=== PATIENT | female | born 1995 | race Caucasian/White ===

== ENCOUNTER 2019-10-08 07:36 | Emergency (ER) | payer OTHER, BC, SELFPAY ==
[2019-10-08 07:45] VITALS: BP 118/71; PULSE 74; RESP 18; TEMP 36.6; O2SAT 100
[2019-10-08] MEDS: SODIUM CHLORIDE 0.9% IV 1,000 ML 999 ML IV CONT (08:07)
[2019-10-08 08:15] LABS: Basophils Percent Auto 0.3 % (0.2-1.2); Eosinophils Absolute Auto 0.1 K/mm3 (0-0.3); Eosinophils Percent Auto 1.8 % (0-4.4); Immature Granulocyte Absolute 0.01 K/mm3 (0.00-0.031); Immature Granulocyte Percent A 0.1 % (0-0.5); Lymphocytes Absolute Auto 1.93 K/mm3 (0.9-3.2); Lymphocytes Percent Auto 27.1 % (18.3-44.2); Mean Corpuscular HGB Conc 32.6 g/dl (32-36); Mean Corpuscular Hemoglobin 29.4 pg (26-34); Mean Corpuscular Volume 90.1 fl (80-100); Mean Platelet Volume 9.5 fl (7.4-10.4); Monocytes Absolute Auto 0.7 K/mm3 (0.1-0.6); Neutrophils Absolute Auto 4.3 K/mm3 (1.3-6.7); Neutrophils Percent Auto 60.7 % (45.5-73.1); Platelet Count Result 233 k/mm3 (150-375); Red Blood Count 4.77 M/mm3 (4.2-5.4); Red Cell Distribution Width 12.6 % (11.5-14.5); White Blood Count 7.1 K/mm3 (4.5-10.0)
[2019-10-08 08:17] LABS: Add Urine Microscopic? NO; Appearance Urine Clear (Clear); Bilirubin Urine Negative (Negative); Blood Urine Negative (Negative); Color Urine Yellow (Yellow); Glucose Urine UA Negative (Negative); Ketones Urine Negative (Negative); Leukocyte Esterase Ur Negative LEU/UL (Negative); Nitrate Urine Negative (Negative); Protein Urine Negative (Negative); Specific Grav Ur 1.028 (1.001-1.035); Urobilinogen Urine Negative mg/dL (<2.0)
[2019-10-08] MEDS: DICYCLOMINE HCL INJ 20 MG/2 ML VIAL IM (08:19)
[2019-10-08 08:27] LABS: Alanine Aminotransferase 18 U/L (4-35); Albumin Level 4.6 g/dL (3.5-5.1); Alkaline Phosphatase 55 U/L (38-126); Aspartate Amino Transferase 21 U/L (14-36); Bilirubin,Total 0.3 mg/dL (0.2-1.3); Blood Urea Nitrogen 8 mg/dL (7-17); Calcium 9.7 mg/dL (8.4-10.2); Carbon Dioxide 26 mmol/L (22-30); Chloride 100 mmol/L (98-107); Estimated CRCL calculation 83 ml/min; Estimated Glomerular Filt Rate > 60; Glucose 99 mg/dL (65-105); Lipase 64 U/L (23-300); Potassium 4.2 mmol/L (3.4-5.0); Sodium 138 mmol/L (137-145)
--- NOTE | 2019-10-08 08:34 | ED.ABDPAIN ---
HPI - Abdominal Pain General Chief Complaint: Abdominal Pain Stated Complaint: abd pain/bloody diarrhea Time Seen by Provider: 10/08/19 07:42 Source: patient and RN notes reviewed Mode of arrival: ambulatory Limitations: no limitations History of Present Illness HPI narrative: Pt is a 23 y/o female presenting to the ED c/o ABD pain. Pt reports she started experiencing suprapubic ABD pain recently. Pt describes the pain as intermittent, noting it occurs about every 5 minutes in duration. Pt states the pain originally started as a soreness in her upper ABD and is now sharp and cramping. Pt also reports nausea, hematochezia, dysuria, and urinary urge, but denies vomiting. Pt states she has a Hx of ulcer's as a child. Pt also notes she developed cold Sx's yesterday. Pertinent past history: other (Ulcers) Pain Consistency: intermittent Location: suprapubic Quality: cramping and sharp Associated symptoms: nausea, diarrhea, dysuria, hematochezia and other (Urinary urge) Related Data Home Medications Medication Instructions Recorded Confirmed levonorgestrel-ethinyl estrad tablet 10/08/19 [[place]a (28)] Allergies Allergy/AdvReac Type Severity Reaction Status Date / Time Penicillins Allergy Unknown Verified 10/08/19 07:48 Sulfa (Sulfonamide Allergy Unknown Verified 10/08/19 07:48 Antibiotics) Review of Systems Gastrointestinal: Gastrointestinal: Reports abdominal pain (Suprapubic), Reports hematochezia, Reports nausea and Denies vomiting Genitourinary: Genitourinary: Reports dysuria and Reports urinary urgency PMFSH Past Medical History Medical History Ulcer Surgical History Surgical History No significant past surgical history Social History Social History Smoking status: Unknown if ever smoked Gender identity (if verbalized by the patient): Female Exam Const: General: healthy appearing, no acute distress and alert Nutritional Appearance: well nourished HENMT: Mouth: Yes lip normal Resp: Effort & Inspection: normal respiratory effort Auscultation: clear to auscultation bilaterally Cardio: Rate: regular rate Rhythm: regular rhythm GI: GI Palp: Yes Soft to palpation and Yes Tenderness to palpation present (GI) (Suprapubic) Auscultation: normal bowel sounds Back/Spine/Pelvis: Other: Full ROM Skin: General skin exam: normal color Other: Warm; Dry Neuro: General: patient oriented x3 Speech: normal speech Extrem: Other: Full ROM Psych: Mental Status: mental status grossly normal Affect: normal affect Course Vital Signs Vital signs: Vital Signs Temperature 36.6 C 10/08/19 07:45 Pulse Rate 74 10/08/19 07:45 Respiratory Rate 18 10/08/19 07:45 Blood Pressure 118/71 10/08/19 07:45 Pulse Oximetry 100 10/08/19 07:45 Temperature 36.6 C 10/08/19 09:07 Pulse Rate 76 10/08/19 09:09 Respiratory Rate 18 10/08/19 09:09 Blood Pressure 130/79 10/08/19 09:09 Pulse Oximetry 100 10/08/19 09:09 MDM - Abdominal Pain Differential Diagnosis Differential diagnosis: Likely abdominal pain and other (colitis, IBD, other) Medical Records Attestation: I reviewed the patient's medical records. Lab Data Attestation: I reviewed the patient's lab results. Result diagrams: 10/08/19 08:03 10/08/19 08:03 Labs: Lab Results 10/08/19 10/08/19 10/08/19 Range/Units 08:03 08:03 08:03 WBC 7.1 (4.5-10.0) K/mm3 RBC 4.77 (4.2-5.4) M/mm3 Hgb 14.0 (12.0-15.0) g/dL Hct 43.0 (37.0-47.0) % MCV 90.1 (80-100) fl MCH 29.4 (26-34) pg MCHC 32.6 (32-36) g/dl RDW 12.6 (11.5-14.5) % Plt Count 233 (150-375) k/mm3 MPV 9.5 (7.4-10.4) fl Immature Gran % (Auto) 0.1 (0-0.5) % Neut % (Auto) 60.7 (45.5-73.1) % Lymph % (Auto) 27.1 (18.3-44.2) % [place] % (Auto) 10.0 H
[2019-10-08 09:07] VITALS: TEMP 36.6
[2019-10-08 09:09] VITALS: BP 130/79; PULSE 76; RESP 18; O2SAT 100
[2019-10-08] MEDS: CIPROFLOXACIN 500 MG TAB PO (09:11)
== END 2019-10-08 09:40 | disposition home or self-care (01) ==
PROVIDERS: Emergency Provider Emergency Medicine; PCP Family Medicine
DX: K52.9 Noninfective gastroenteritis and colitis, unspecified (principal)
CPT/HCPCS: 36415; 80053; 81003; 81025; 83690; 85025; 96365; 96372; 99284; A9270; J0131; J0500; J7030

== ENCOUNTER 2019-11-04 00:39 | Day surgery (SDC) | payer OTHER, BC, SELFPAY ==
[2019-11-02 18:06] VITALS: BMI 23.4
[2019-11-04 10:57] VITALS: BP 120/69; PULSE 79; RESP 18; TEMP 36.2; O2SAT 100; BMI 22.8
--- NOTE | 2019-11-04 11:11 | WPDANESEPPF ---
Anes - Initial Pre Proc Eval Procedure: Operation Date: 11/04/19 12:00 Proposed Procedures p Esophagogastroduodenoscopy & Colonoscopy - Adama Rosado MD Date/Time: 11/04/19 11:11 Surgeon: Adama Rosado MD Pre Op Diagnosis: Abdominal Pain/GERD/Colitis Patient Data Age: 23 Gender: F Height: 1.68 m Weight: 64.3 kg Last Vital Signs Temp 36.2 C L 11/04/19 10:57 Pulse 79 11/04/19 10:57 Resp 18 11/04/19 10:57 BP 120/69 11/04/19 10:57 Pulse Ox 100 11/04/19 10:57 Allergies Allergy/AdvReac Type Severity Reaction Status Date / Time Penicillins Allergy Unknown Rash Verified 11/04/19 10:47 shrimp Allergy Unknown Rash Verified 11/04/19 10:47 Sulfa (Sulfonamide Allergy Unknown Rash Verified 11/04/19 10:47 Antibiotics) Home Medications Medication Instructions Recorded Confirmed Type dicyclomine 10 mg capsule 10 mg PO TID #30 cap 10/20/19 11/02/19 Rx L. acidophilus-L. rhamnosus 2 cap PO DAILY 11/02/19 11/02/19 History [Probiotic] levonorgestrel-ethinyl estrad 1 tablet PO DAILY 11/02/19 11/02/19 History [[place] (28)] mecobalamin (vitamin B12) 1,000 mcg PO DAILY 11/02/19 11/02/19 History omega 4-evc-mlj-fish oil [Fish Oil] 1 cap PO DAILY 11/02/19 11/02/19 History omeprazole magnesium [[employer] 20 mg PO DAILY 11/02/19 11/02/19 History (omeprazole)] sodium,potassium,mag sulfates 17.5 See Rx Instructions PO .COMPLEX 11/03/19 Rx gram-3.13 gram-1.6 gram oral soln #354 ml Patient hx anesthesia problems: none Family hx anesthesia problems: none PMFSH Past Medical History Medical History (Updated 11/03/19 @ 09:55 by Shawn Silva DO) Allergic rhinitis Anxiety Asthma Colitis GERD (gastroesophageal reflux disease) Hypersomnolence Migraine without aura and without status migrainosus, not intractable Surgical History Surgical History History of carpal tunnel surgery Social History Social History Smoking status: Never smoker Second hand tobacco smoke exposure: No Alcohol intake: never Anes - Eval Final PreProcedure Day of Procedure 11/04/19 11:11 Patient weight: normal Heart: regular rate and rhythm Lungs: clear to auscultation and normal air movement Airway: Mallampati scale class II Neurological: alert and oriented Last oral intake: >/= 8 hours ASA classification: II Emergent: no Anesthetic plan: proceed Anesthesia type and monitoring: general GIVS and standard monitoring Informed Consent: The patient's anesthetic plan and its attendant risks and benefits were discussed with the patient/family/POA. Questions were solicited and answers provided to the satisfaction of the patient/family/POA.
[2019-11-04] MEDS: LACTATED RINGERS 1,000 ML 150 ML IV CONT (11:12)
[2019-11-04 12:52] VITALS: BP 91/50; PULSE 65; RESP 21; O2SAT 100
[2019-11-04 13:02] VITALS: BP 102/56; PULSE 64; RESP 18; O2SAT 98
[2019-11-04 13:12] VITALS: BP 105/66; PULSE 59; RESP 20; O2SAT 100
== END 2019-11-04 13:21 | disposition home or self-care (01) ==
PROVIDERS: PCP Family Medicine; Visit Provider Internal Medicine Gastroenterology
PROC: 0DJ08ZZ Inspection of Upper Intestinal Tract, Via Natural or Artificial Opening Endoscopic (ICD-10-PCS; CPT 43235; principal; 2019-11-04 12:00)
DX: R19.4 Change in bowel habit (principal); R10.84 Generalized abdominal pain; K64.8 Other hemorrhoids; R11.2 Nausea with vomiting, unspecified; K29.50 Unspecified chronic gastritis without bleeding; K21.9 Gastro-esophageal reflux disease without esophagitis; J45.909 Unspecified asthma, uncomplicated; F41.9 Anxiety disorder, unspecified
CPT/HCPCS: 45380; 43239; 88305; J2704; J7120

== ENCOUNTER 2020-05-16 10:54 | Outpatient (CLI) | payer OTHER, BC, SELFPAY ==
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
== END 2020-05-16 10:55 | disposition home or self-care (01) ==
PROVIDERS: PCP Family Medicine; Visit Provider Family Medicine
DX: S09.90XA Unspecified injury of head, initial encounter (principal)
CPT/HCPCS: 70450

== ENCOUNTER 2020-09-15 12:05 | Emergency (ER) | payer BC, OTHER, SELFPAY ==
[2020-09-15 12:07] VITALS: BP 142/80; PULSE 71; RESP 16; TEMP 36.6; O2SAT 100
[2020-09-15 12:10] VITALS: BP 142/80; PULSE 71; RESP 16; TEMP 36.6; O2SAT 100
[2020-09-15 14:00] VITALS: BP 130/67; PULSE 72; RESP 16; O2SAT 100
[2020-09-15] MEDS: TETANUS,DIPHTHERIA,AC PERTUSSIS ADULT (0.5 ML) BOOSTRIX IM (15:41)
--- NOTE | 2020-09-15 15:41 | ED.WOUNDLAC ---
HPI - Wound/Laceration General Chief Complaint: Wound/Laceration Stated Complaint: laceration to L index finger Time Seen by Provider: 09/15/20 13:39 Source: patient Mode of arrival: ambulatory Limitations: no limitations History of Present Illness HPI narrative: This is a 24 year old female that presents to the ER for laceration to left 2nd finger sustained just prior to arrival. Reports she accidentally cut the finger with a knife while slicing potatoes. Reports tingling in the tip of the finger. She is not up-to-date on tetanus vaccine. Denies decreased ROM or numbness. Related Data Home Medications Medication Instructions Recorded Confirmed levonorgestrel-ethinyl estrad tablet 10/08/19 05/16/20 [Altavera (28)] Allergies Allergy/AdvReac Type Severity Reaction Status Date / Time shrimp Allergy Unknown Rash Verified 09/15/20 12:08 doxycycline Allergy Unknown Verified 09/15/20 12:17 Penicillins Allergy Unknown Verified 09/15/20 12:08 Sulfa (Sulfonamide Allergy Unknown Verified 09/15/20 12:08 Antibiotics) Review of Systems Review of Systems: Narrative: CONSTITUTIONAL: Denies fever SKIN: Reports laceration NEUROLOGIC: Denies numbness All systems reviewed & are unremarkable except as noted in HPI and below PMFSH Past Medical History Medical History (Updated 09/15/20 @ 15:48 by Mackenzie East PA-C) Allergic rhinitis Anxiety Asthma Colitis GERD (gastroesophageal reflux disease) Hypersomnolence Migraine without aura and without status migrainosus, not intractable Ulcer Surgical History Surgical History History of carpal tunnel surgery No significant past surgical history Family History Family History Grandparent Diabetes mellitus Hypertension Cerebrovascular accident Carcinoma of colon Social History Social History Smoking status: Unknown if ever smoked Second hand tobacco smoke exposure: No Alcohol intake: never Gender identity (if verbalized by the patient): Female Exam Narrative: Exam Narrative: GENERAL: Well-appearing, well-nourished, and in no acute distress. HEAD: Normocephalic, atraumatic. EYES: EOMI. EXTREMITIES: Normal range of motion. No edema or obvious deformity. Left 2nd finger with 2cm linear laceration into subcutaneous tissue on radial surface of the DIP joint SKIN: Warm, dry, no rash. NEURO: No focal deficits. Alert and oriented x3. PSYCH: Normal mood and affect Course Vital Signs Vital signs: Vital Signs Temperature 97.9 F 09/15/20 12:07 Pulse Rate 71 09/15/20 12:07 Respiratory Rate 16 09/15/20 12:07 Blood Pressure 142/80 H 09/15/20 12:07 Pulse Oximetry 100 09/15/20 12:07 Temperature 97.9 F 09/15/20 12:10 Pulse Rate 71 09/15/20 12:10 Respiratory Rate 16 09/15/20 12:10 Blood Pressure 142/80 H 09/15/20 12:10 Pulse Oximetry 100 09/15/20 12:10 Procedures Laceration Laceration 1: Date: 09/15/20 Time: 15:46 Site: hand Side (If applicable): left Size (cm): 2 Description: linear Depth: simple, single layer Local Anesthetic: lidocaine 1% Amount of anesthesia used (mL): 4 Pre-repair: irrigated ====== Skin Level ====== Skin layer closed with: nylon Size (cm): 5-0 Number of sutures: 3 Technique: simple, interrupted ====== Subcutaneous Layer ====== ====== Muscle Layer ====== ====== Tendon Layer ====== Nerve Block Nerve Block 1: Nerve block date: 09/15/20 Nerve block time: 15:46 Local Anesthetic: lidocaine 1% Amount of anesthesia used (mL): 4 Side: left Nerve Blocks: digital Procedure Successful: Yes Patient Tolerated Procedure: well and no complications Complications: none
[2020-09-15 16:02] VITALS: BP 126/79; PULSE 68; RESP 15; O2SAT 100
== END 2020-09-15 16:04 | disposition home or self-care (01) ==
PROVIDERS: Emergency Provider Emergency Medicine; Family Provider Pediatrics; PCP Family Medicine
DX: S61.211A Laceration without foreign body of left index finger without damage to nail, initial encounter (principal); Y93.G1 Activity, food preparation and clean up; Z23 Encounter for immunization; J45.909 Unspecified asthma, uncomplicated; K21.9 Gastro-esophageal reflux disease without esophagitis; W26.0XXA Contact with knife, initial encounter
CPT/HCPCS: 12001; 90471; 90715; 99283

== ENCOUNTER 2021-02-26 19:21 | Emergency (ER) | payer OTHER, BC, SELFPAY ==
[2021-02-26 19:32] VITALS: BP 135/83; PULSE 72; RESP 14; TEMP 36.9; O2SAT 100
--- NOTE | 2021-02-26 19:34 | ED.SKABFB ---
HPI - Skin/Abscess/Foreign Bdy General Chief complaint: Skin/Abscess/Foreign Body Stated complaint: Possible Poison Kim Time Seen by Provider: 02/26/21 19:38 Source: patient and RN notes reviewed Mode of arrival: ambulatory Limitations: no limitations History of Present Illness HPI narrative: 25-year-old female presents concern for rash. Reports itchy rash on her ankles, chest, neck, hands. Reports she has history of severe reaction to poison kim. Reports she has been doing yard work, does not know of any known exposure. Denies swollen lips, swollen tongue, trouble breathing, nausea, vomiting, diarrhea. Reports using clobetasol with little relief. MD complaint: rash Related Data Home Medications Medication Instructions Recorded Confirmed levonorgestrel-ethinyl estrad 0.15 tablet PO DAILY 02/26/21 02/26/21 [Al[place]vera (28)] Allergies Allergy/AdvReac Type Severity Reaction Status Date / Time Penicillins Allergy Unknown Verified 02/26/21 19:41 Sulfa (Sulfonamide Allergy Unknown Verified 02/26/21 19:41 Antibiotics) Review of Systems Review of Systems: Narrative: CONSTITUTIONAL: Denies malaise, chills, sweats, or fever. EYES: Denies visual changes, redness, or discharge. ENT: Denies swollen lips, swollen tongue CARDIOVASCULAR: Denies chest pain, palpitations, or edema. RESPIRATORY: Denies cough or dyspnea. GASTROINTESTINAL: Denies abdominal pain, nausea, vomiting, diarrhea SKIN: Reports itchy rash on ankles, hands, chest, neck All systems reviewed & are unremarkable except as noted in HPI and below PMFSH Social History Social History Gender identity (if verbalized by the patient): Female Comments At time of signature, agree with nursing past medical, surgical, social and family history. There is no relevant family history pertinent to the presenting complaint Exam Narrative: Exam Narrative: GENERAL: Well-appearing, well-nourished, and in no acute distress. HEAD: Normocephalic, atraumatic. EYES: PERRLA, conjunctivae clear, and EOMI. ENT: Mucous membranes moist. Oropharynx without edema, erythema or lesions. NECK: Supple. No lymphadenopathy CHEST: Clear to auscultation. No respiratory distress. HEART: Regular rate and rhythm. SKIN: Warm, dry. Erythematous papular rash noted to bilateral ankles, hands, chest NEURO: Alert and oriented x3. PSYCH: Normal mood and affect Course Course Emergency Course: Patient is aware of diagnosis, understands and agrees to treatment plan. Anticipatory guidance given. Patient agrees to follow-up as directed and is aware of reasons to seek care at the emergency department. Portions of this record may have been created with voice recognition software Vital Signs Vital signs: Reviewed. MDM - Skin/Abscess/Foreign Bdy MDM Narrative Medical decision making narrative: Does not appear at this time to be erythema multiforme, bullous, SJS, TEN; no evidence at this time to suggest RMSF, endocarditis or Lyme disease; patient looks well, nontoxic and is tolerating oral intake; no neurologic signs or symptoms; no headache, photophobia or neck pain; afebrile; appropriate for initial outpatient treatment; discussed the importance of follow-up, patient agrees; question, viral exanthema, contact dermatitis, allergic dermatitis, eczema, urticaria, chiggers. No soft palate or uvula edema, no tongue, lip edema or other mucosal involvement, no respiratory compromise, no stridor, no wheezing, no wheezing, no history of syncope, no hypotension, no nausea, vomiting, or diarrhea. Instructed patient to go to nearest ER immediately for any worsening symptoms including but not limited to: fever, spreading rash, pain, sore throat, headache, dizziness, chest pain, trouble breathing, or any symptoms concerning to the patient. Critical Care Time Critical Care Time Critical Care Time: No Discharge Plan Discharge Clinical Impression: Contact dermatitis Qualifiers: Contact dermatitis type: irr
== END 2021-02-26 19:55 | disposition home or self-care (01) ==
PROVIDERS: Emergency Provider Nurse Practitioner; PCP Family Medicine
DX: L24.7 Irritant contact dermatitis due to plants, except food (principal)
CPT/HCPCS: 99213; G0463

== ENCOUNTER → 2021-05-03 02:56 | Outpatient (CLI) | payer OTHER, BC, SELFPAY ==
[2021-05-03 20:44] LABS: SARS-CoV-2 RNA PCR Negative
== END ==
PROVIDERS: PCP Family Medicine; Visit Provider Family Medicine
DX: Z20.822 Contact with and (suspected) exposure to COVID-19 (principal); R05 Cough
CPT/HCPCS: C9803; U0003; U0005

== ENCOUNTER 2022-03-14 10:53 | Outpatient (CLI) | payer BC, SELFPAY ==
--- NOTE | ~2022-03-14 | XR_ITS ---
XR foot RT min 3V DATE: 03/14/2022 11:18 INDICATION: Base of right first toe pain. No injury. TECHNIQUE: 4 views COMPARISON: None FINDINGS: No fracture or dislocation, periosteal reaction or bone destruction. IMPRESSION: No significant abnormality Reviewed, dictated and finalized at location B. IMPRESSION: No significant abnormality
== END 2022-03-14 10:54 | disposition home or self-care (01) ==
PROVIDERS: PCP Family Medicine; Visit Provider Family Medicine
DX: M79.674 Pain in right toe(s) (principal)
CPT/HCPCS: 73630

== ENCOUNTER → 2022-03-19 08:30 | Outpatient (CLI) | payer BC, SELFPAY ==
--- NOTE | ~2022-03-19 | US_ITS ---
US abdomen limited INDICATION: PROCEDURE: Realtime right upper abdominal ultrasound. COMPARISON: No prior studies for comparison. FINDINGS: The pancreas is normal without focal mass or pancreatic ductal dilation. Liver echotexture is normal without focal mass or intrahepatic biliary dilatation. There is normal directional flow i n the portal vein. The gallbladder is normal without stones, gallbladder wall thickening or pericholecystic fluid. Comm on bile duct measures 3 mm. No sonographic Mccallum's sign. IMPRESSION: 1: Normal limited abdominal ultrasound. Reviewed, dictated and finalized at location A.
== END ==
LOC: EXPGOSH 08:31 → EXPGOSHRAD 03-22 14:44
PROVIDERS: PCP Family Medicine; Visit Provider Family Medicine
DX: R10.9 Unspecified abdominal pain (principal)
CPT/HCPCS: 76705

== ENCOUNTER 2024-01-27 08:42 | Outpatient (RCR) | payer OTHER, SELFPAY ==
[2024-01-27] MEDS: RHO(D) IMMUNE GLOBULIN 300 MCG/2 ML SYRINGE IM (15:14)
== END 2024-04-26 23:59 | disposition home or self-care (01) ==
LOC: ANHLAB 08:42
PROVIDERS: PCP Family Medicine; Visit Provider Obstetrics & Gynecology
DX: Z29.13 Encounter for prophylactic Rho(D) immune globulin (principal); O36.0190 Maternal care for anti-D [Rh] antibodies, unspecified trimester, not applicable or unspecified; Z3A.00 Weeks of gestation of pregnancy not specified
CPT/HCPCS: 36415; 85461; 86850; 86900; 86901; 90384; J2790

== ENCOUNTER 2024-04-21 06:34 | Inpatient (IN) | payer OTHER, SELFPAY ==
[2024-04-21] VITALS (232 sets, daily range): BP systolic 87–146; BP diastolic 48–102; PULSE 50–156; RESP 18; TEMP 36.7–37.9; O2SAT 80–100; BMI 30.4
--- NOTE | 2024-04-21 06:34 | LDADM ---
This patient, Flor Chou, was admitted to Labor/Delivery/Recovery 106 on 04/21/24 at 06:34. Plans for labor, pain management and were discussed with patient. Patient/family oriented to hospital policies and general routines including ID bracelet, bed and alarms, visiting hours, pain management, procedures, bathroom and other care routines, personal items, smoking policy, room service/diet and guest tray routines, infant security routines, and visiting hours. Patient/Family are encouraged to report perceived risks to care and to ask questions if they do not understand what they are told or what they should do. See OBIX for further documentation.
--- OUTSIDE RECORDS SUMMARY | 2024-04-21 07:05 | XMS_ITS ---
Author Name Unknown Organization [facility] Address [address] [place] [address] Care Team Providers Care Telesales Agent Name Role Phone Suzanne Moran Primary Care Provider UnavailSahara Daley Unavailable [phone] Lily Mercedes Unavailable Unavailable Migration, Provider Unavailable Unavailable Allergies Allergen (clinical drug ingredient) Drug/Non Drug Allergy documented on EMR Reaction Allergy Type Onset Date Status sulfamethoxazole / trimethoprim Bactrim rash in childhood Drug Allergy Active doxycycline Doxycycline rash Drug Allergy Act eusebio clindamycin Clindamycin rash Drug Allergy Act eusebio Penicillin rash as a small child Drug Allergy Active [facility] Con[facility] Encounter Medications Medication SIG (Take, Route, Frequency, Duration) Notes Start Date End Date Status predniSONE 20 MG 7lhlu1gsq,5yynx6azy ,8gqkb5ukc,0.5tabx3 day orally once a day for 12 days 01/25/2020 Active Benadryl Allergy 25 MG 1 cap(s) orally Qday, PRN Active PriLOSEC OTC 20 MG 1 tab(s) orally once a day for 14 day(s) Active CONTROL PILL 1 TABLET BY MOUTH DAILY for 30 DAYS *Please review for potential replacement for e-prescription and drug interaction check* Active Encounters
--- OUTSIDE RECORDS SUMMARY | 2024-04-21 07:05 | XMS_ITS | Patient Health Record ---
Author Name Unknown Organization [facility] Address [address] [place] [address] Care Team Providers Care Molding Associate Name Role Phone Suzanne Moran Primary Care Provider Sahara Joseph Unavailable [phone] Lily Mercedes Unavailable Unavailable Migration, Provider Unavailable Unavailable Allergies Allergen (clinical drug ingredient) Drug/Non Drug Allergy documented on EMR Reaction Allergy Type Onset Date Status sulfamethoxazole / trimethoprim Bactrim rash in childhood Drug Allergy Active doxycycline Doxycycline rash Drug Allergy Act eusebio clindamycin Clindamycin rash Drug Allergy Act eusebio Penicillin rash as a small child Drug Allergy Active Reason For Referral No Information Medications Medication SIG (Take, Route, Frequency, Duration) Notes Start Date End Date Status predniSONE 20 MG 8jthq2qgp,5cnsz3tyb ,8zqnj4hgd,0.5tabx3 day orally once a day for 12 days 01/25/2020 Active Benadryl Allergy 25 MG 1 cap(s) orally Qday, PRN Active PriLOSEC OTC 20 MG 1 tab(s) orally once a day for 14 day(s) Active CONTROL PILL 1 TABLET BY MOUTH DAILY for 30 DAYS *Please review for potential replacement for e-prescription and drug interaction check* Active Social History Tobacco Use:
[2024-04-21 07:28] LABS: Basophils Absolute Auto 0.1 K/mm3 (0.0-0.1); Basophils Percent Auto 0.4 % (0.2-1.2); Eosinophils Absolute Auto 0.1 K/mm3 (0-0.3); Eosinophils Percent Auto 0.9 % (0-4.4); Hematocrit 37.8 % (37.0-47.0); Hemoglobin 12.5 g/dL (12.0-15.0); Immature Granulocyte Percent A 1.7 % (0-0.5); Lymphocytes Absolute Auto 2.38 K/mm3 (0.9-3.2); Lymphocytes Percent Auto 19.9 % (18.3-44.2); Mean Corpuscular HGB Conc 33.1 g/dl (32-36); Mean Corpuscular Hemoglobin 29.3 pg (26-34); Mean Corpuscular Volume 88.7 fl (80-100); Mean Platelet Volume 9.3 fl (7.4-10.4); Monocytes Percent Auto 8.4 % (2.6-8.5); Neutrophils Absolute Auto 8.2 K/mm3 (1.3-6.7); Neutrophils Percent Auto 68.7 % (45.5-73.1); Platelet Count Result 178 k/mm3 (150-375); Red Blood Count 4.26 M/mm3 (4.2-5.4); Red Cell Distribution Width 12.9 % (11.5-14.5)
[2024-04-21 08:18] LABS: HIV 1/2 Ab P24 Ag Result Negative (Negative)
[2024-04-21 08:23] LABS: Rapid Plasma Reagin Non-Reactive (NonReactive)
--- NOTE | 2024-04-21 08:56 | WPDOBADMIT ---
Obstetrics - Admit Note Admission Note: record reviewed. Additions to the history and/or subsequent changes in the physical findings follow. 28 y/o G1 at 40 4/7 weeks here with contractions. GBS neg. AVSS NST reactive TOCO: contractions every 2-4 min ABD soft, nontender, gravid, vertex EXT nontender Cervix 3/80/-2. AROM with clear fluid. IUPC placed. A: IUP at term with labor. P: Anticipate . Augment labor as needed.
[2024-04-21] MEDS: LACTATED RINGERS 1,000 ML 125 ML IV CONT ×3 (09:06→18:14)
--- NOTE | 2024-04-21 09:34 | WPDANESEPP ---
Anes - Eval Pre Procedure Procedure: Labor epidural Date/Time: 04/21/24 09:34 Surgeon: Rianna Preop Diagnosis: Abdominal pain with contractions Pre Op Diagnosis: Labor Patient Data Age: 28 Gender: F Height: 1.7 m Weight: 88 kg Last Vital Signs Pulse 84 04/21/24 09:30 BP 117/83 04/21/24 09:30 Pulse Ox 99 04/21/24 09:31 O2 Del Method Room Air 04/21/24 07:30 Allergies Allergy/AdvReac Type Severity Reaction Status Date / Time shrimp Allergy Unknown Rash Verified 03/26/24 13:23 doxycycline Allergy Unknown Verified 03/26/24 13:23 Penicillins Allergy Unknown Verified 03/26/24 13:23 Sulfa (Sulfonamide Allergy Unknown Verified 03/26/24 13:23 Antibiotics) Home Medications Medication Instructions Recorded Confirmed Type Classic 1 tab-cap PO DAILY 03/26/24 03/26/24 History Laboratory Tests 04/21/24 07:12 WBC 12.0 H K/mm3 (4.5-10.0) RBC 4.26 M/mm3 (4.2-5.4) Hgb 12.5 g/dL (12.0-15.0) Hct 37.8 % (37.0-47.0) MCV 88.7 fl (80-100) MCH 29.3 pg (26-34) MCHC 33.1 g/dl (32-36) RDW 12.9 % (11.5-14.5) Plt Count 178 k/mm3 (150-375) MPV 9.3 fl (7.4-10.4) Immature Gran % (Auto) 1.7 H % (0-0.5) Neut % (Auto) 68.7 % (45.5-73.1) Lymph % (Auto) 19.9 % (18.3-44.2) [place] % (Auto) 8.4 % (2.6-8.5) Eos % (Auto) 0.9 % (0-4.4) Baso % (Auto) 0.4 % (0.2-1.2) Lymph # (Auto) 2.38 K/mm3 (0.9-3.2) [place] # (Auto) 1.0 H K/mm3 (0.1-0.6) Eos # (Auto) 0.1 K/mm3 (0-0.3) Baso # (Auto) 0.1 K/mm3 (0.0-0.1) Abs Immat Gran (auto) 0.20 H K/mm3 (0.00-0.031) Absolute Neuts (auto) 8.2 H K/mm3 (1.3-6.7) Absolute Nucleated RBC 0.000 K/mm3 (0.0-0.012) Nucleated RBC % 0.0 % (0.0-0.2) RPR Non-reactive (NonReactive) HIV 1&2 Ab/P24 Ag 4thGn Negative (Negative) Blood Type O Negative Antibody Screen Positive Antibody Identification Pending Antigen Identification Pending RENUKA, IgG Interpret Negative RENUKA, Poly Interpret Not Performed RENUKA, Complement Interp Pending : gestational age HCG: positive Patient hx anesthesia problems: none Family hx anesthesia problems: none Results Review: All pre-operative results and documents have been reviewed as part of the pre-operative evaluation. COUNT INCLUDES [facility] Past Medical History Medical History Allergic rhinitis Anxiety Asthma Colitis GERD (gastroesophageal reflux disease) Hypersomnolence Migraine without aura and without status migrainosus, not intractable Ulcer Surgical History Surgical History History of carpal tunnel surgery No significant past surgical history Family History Family History Grandparent Diabetes mellitus Carcinoma of colon Hypertension Cerebrovascular accident Other Skin cancer Social History Social History Smoking status: Never smoker Second hand tobacco smoke exposure: No Alcohol intake: never Substance use: never Substance use type: does not use Do You Feel Safe in your Home?: Yes Lack of Transportation: No Lack of Food: Never True Current Housing: I Have Housing Concerned About Future Housing: No Difficulty Paying Gas/Electric Bills: No Difficulty Paying for Meds: No Currently Unemployed: No Education: Bachelor's Degree Difficulty w/ Childcare or Family Care: No Gender identity (if verbalized by the patient): Female Spiritual care concerns: No Exam Day of Procedure 04/21/24 09:34 Patient weight: overweight Heart: regular rate and rhythm Airway: Mallampati scale class II
[2024-04-21] MEDS: OXYTOCIN 30 UNITS/NS 500 ML 30 UNITS/500 ML BAG IV CONT (11:08)
--- NOTE | 2024-04-21 12:14 | PM.OBPNLAB ---
Pain Control Date/time seen: 04/21/24 12:14 Comments: Comfortable Pelvic Exam Dilation (cm): 4 Effacement (%): 80 station: -1 Contractions Contraction frequency: 3 Status status: Category l Assessment and Plan Comments: Continue labor augmentation.
[2024-04-21] MEDS: FAMOTIDINE 20 MG/2 ML VIAL IV PUSH (16:20)
[2024-04-21] MEDS: ACETAMINOPHEN 500 MG TABLET 1000 MG PO (17:50)
[2024-04-21] MEDS: OXYTOCIN 30 UNITS/NS 500 ML 30 UNITS/500 ML BAG 999 UNITS IV CONT (20:10)
--- NOTE | 2024-04-21 20:20 | PM.OBPRVD ---
OB - Vaginal Delivery Note Procedure Delivery date: 04/21/24 Induction method: None Delivery augmentation: Rupture of Membranes and Pitocin Delivery monitor: External FHT, External Uterine and Internal Uterine Route of delivery: Episiotomy description: None Laceration Description: Perineal - 2nd Degree Delivery repair: vicryl (3-0) Specimen: Yes (cord blood) Quantitative Blood Loss (ml): 140 Anesthesia type: Epidural Disposition: PACU Complications: None Narrative: 28 y/o G1 at 40 4/7 weeks gestation who presented to the hospital with contractions. Labor was diagnosed. Amniotomy was performed with return of clear fluid. She received an epidural for pain control. Labor was augmented with oxytocin IV. Her labor progressed and her cervix dilated completely. She pushed with good effort and delivered the 's head to the perineum, followed by the body. The nose and mouth were bulb suctioned. After a delay, the cord was clamped and cut. The was handed off the field. Cord blood was collected. The placenta delivered spontaneously and was grossly normal in appearance. The usual 3 vessel cord was noted. A second degree midline perineal laceration was sustained. This was reapproximated using 3 0 Vicryl in the usual layered fashion. Excellent hemostasis resulted as did excellent reapproximation of the normal anatomy. Needle and instrument counts were correct. The patient was taken to recovery room in stable condition. The infant went to the nursery in stable condition. I was present and scrubbed for the entire delivery. Baby Date of : 04/21/24 Time of : 20:07 Gestational Age by Date: 40 gender: Male presentation: vertex position: Left Occiput Anterior Placenta delivery description: Spontaneous and Normal Configuration Cord Vessel Description: 3 Vessels, Nuchal Cord (x1) and Delayed Cord Clamping score one minute: 3 score five minutes: 7
--- NOTE | 2024-04-21 20:23 | P.DS_ITS ---
DS: Admitting Diagnosis Discharge Date 04/23/24 Admitting Diagnosis IUP at 40 4/7 weeks Labor DS: Discharge Diagnosis Discharge Diagnosis (1) (normal spontaneous vaginal delivery): Code(s): O80 - Encounter for full-term uncomplicated delivery Status: Acute OB - DS: Summary OB Procedures : None OB Procedures Intrapartum: Spontaneous Vag Delivery OB Procedures: : RHo (D) lg Peripartum Data Laceration Description: Perineal - 2nd Degree Episiotomy description: None Time Spent with Patient Time attestation: Total time spent providing and/or coordinating discharge services: DS: Data Data Completed and Pending Labs on day of discharge: Labs from last 24 hours 04/21/24 07:12 WBC 12.0 H RBC 4.26 Hgb 12.5 Hct 37.8 MCV 88.7 MCH 29.3 MCHC 33.1 RDW 12.9 Plt Count 178 MPV 9.3 Immature Gran % (Auto) 1.7 H Neut % (Auto) 68.7 Lymph % (Auto) 19.9 [place] % (Auto) 8.4 Eos % (Auto) 0.9 Baso % (Auto) 0.4 Lymph # (Auto) 2.38 [place] # (Auto) 1.0 H Eos # (Auto) 0.1 Baso # (Auto) 0.1 Abs Immat Gran (auto) 0.20 H Absolute Neuts (auto) 8.2 H Absolute Nucleated RBC 0.000 Nucleated RBC % 0.0 RPR Non-reactive HIV 1&2 Ab/P24 Ag 4thGn Negative Blood Type O Negative Antibody Screen Positive Antibody Identification Inconclusive Antigen Identification TNP RENUKA, IgG Interpret Negative RENUKA, Poly Interpret Not Performed RENUKA, Complement Interp Negative Discharge Plan Discharge Attending physician on discharge: Hardeep Blanca Discharging Clinician: Hardeep Blanca Patient Disposition: Home, Self-Care Activity: pelvic rest Diet: regular Discharge Instructions: Call or return if temperature above 100.4? F, increased abdominal pain, increased vaginal bleeding or any new problems. Stand Alone Forms: General Discharge Information Follow-up/Referrals: Hardeep Blanca MD [Physician] - 6 Weeks Discharge Medications: New ibuprofen 600 mg tablet 600 mg PO Q6H PRN (Reason: cramps) Qty: 30 0RF Continued Classic 1 tab-cap PO DAILY Date of admission: 04/21/24 06:34 Primary Care Provider: Suzanne Moran Admitting Provider: Hardeep Blanca Attending physician on admission: Hardeep Blanca Condition: Stable
[2024-04-21] MEDS: OXYTOCIN 30 UNITS/NS 500 ML 30 UNITS/500 ML BAG 125 UNITS IV CONT (20:39)
--- NOTE | 2024-04-21 23:20 | PC.NURSE ---
Patient transferred to post room #284 via (W/C ). Support person present. Oriented to unit, room, information board, rooming in, admission packet and security measures. Patient verbalizes understanding.
[2024-04-22 05:00] VITALS: BP 111/76; PULSE 102; RESP 16; TEMP 36.8; O2SAT 99
[2024-04-22 05:36] LABS: Hematocrit 31.9 % (37.0-47.0); Hemoglobin 10.9 g/dL (12.0-15.0)
[2024-04-22] MEDS: IBUPROFEN 600 MG TABLET PO ×2 (07:50→13:55)
[2024-04-22] MEDS: MULTIVIT/MIN/PREN/FOL AC/IRON TABLET 1 TAB PO (07:50)
--- NOTE | 2024-04-22 09:05 | PM.OBPNVD ---
OB - PN: Subj Subjective Date/time seen: 04/22/24 09:05 Narrative: Pain OK. Would like circumcision for son. OB - PN: Obj Data Labs 04/22/24 05:14 Labs: Laboratory Results - last 24 hr 04/21/24 04/22/24 07:12 05:14 Hgb 10.9 L Hct 31.9 L Blood Type O Negative Antibody Screen Positive Antibody Identification Inconclusive Antigen Identification TNP RENUKA, IgG Interpret Negative RENUKA, Poly Interpret Not Performed RENUKA, Complement Interp Negative OB - PN A/P Plan Comments: A: PPD#1, doing well. P: Routine care. Reviewed circ. Exam Psych: Other: AVSS ABD soft, nontender, fundus firm EXT nontender
[2024-04-22 09:33] VITALS: BP 113/66; PULSE 104; RESP 16; TEMP 36.8; O2SAT 100
--- NOTE | 2024-04-22 10:30 | PC.NURSE ---
Introductions were made, then consulted with patient to assess needs related to . Mother led the conversation with her?plans to feed?her and the?experience so far. Encouraged understanding of the benefits of skin to skin (demonstrating unwrapping infant and placing upright on her chest), stimulating with massage touch, changing positions to encourage wakefulness, how to watch for early feeding cues, responsive feeding, feeding on demand (aiming for 8-12 times in 24 hours, about every 2-3 hours), milk production, building/maintaining a milk supply, duration of feeding, signs of adequate intake/output and how to record on the feeding sheet. Mother works well with her infant with encouragement and education. Reviewed positioning and ear, shoulder, hip alignment, supporting the breast to facilitate a deep latch, asymmetrical latch (off-center), leading with the chin with a big, open, wide gape and body close to mother. Infant latched optimally to the left breast in football position. Education given to the mother of how to visualize the suckling (with good rocking jaw motion), swallows (dropping of the lower jaw) and how to listen for drinking at the breast (the ka sound). Infant was able to maintain latch with less pain than she had on her right side, education given to mother about protecting the nipple with optimal positioning and latching. Baby was previously latched to her right breast in cross cradle position and mother voiced that she was having pain, mother had unlatched baby and nipple was pinched. Reviewed comfort measures of healing with a warm, wet washcloth to rinse breast, then leave open to air-dry, good handwashing when or touching the breast/nipples to prevent infection. Mother voiced understanding of skin to skin, stimulating with massage touch, responsive feedings, hand expressed colostrum, talking to infant to encourage if it has been 2 -2.5 hours since the start of the last , to call if infant does not latch, or if there is discomfort with . Resources used for education were facilitated with the [visual educational handouts/ tool/mom and baby guide], Inpatient/outpatient resources provided with business card, feeding sheet, and the mom/baby guide. Parents voiced understanding of information, demonstrated learning and will call if there is a request for assistance. Reported to the Primary RN.
[2024-04-22] MEDS: RHO(D) IMMUNE GLOBULIN 300 MCG/2 ML SYRINGE IM (11:54)
[2024-04-22 12:49] VITALS: BP 115/66; PULSE 86; RESP 16; TEMP 36.9; O2SAT 98
[2024-04-22] MEDS: LANOLIN (LANSINOH) 7.5 GM CREAM 1 APPLIC TOPICAL (13:56)
[2024-04-22 20:19] VITALS: BP 114/74; PULSE 86; RESP 20; TEMP 36.6; O2SAT 98
[2024-04-23] MEDS: IBUPROFEN 600 MG TABLET PO ×2 (01:00→09:26)
[2024-04-23 08:15] VITALS: BP 113/66; PULSE 82; RESP 18; TEMP 36.9; O2SAT 99
--- NOTE | 2024-04-23 09:01 | PM.OBPNVD ---
OB - PN: Subj Subjective Date/time seen: 04/23/24 09:01 Narrative: Pain OK. Would like to go home. OB - PN: Obj Data Labs 04/22/24 05:14 Labs: Laboratory Results - last 24 hr 04/22/24 07:56 Blood Type O Negative Antibody Screen TNP Screen Negative Baby's Blood Type O pos Baby's RENUKA Negative Doses of RhIg Required 1 OB - PN A/P Plan day: 2 Comments: A: PPD#2, doing well. P: Home to f/u 6 weeks. Exam Psych: Other: AVSS ABD soft, nontender, fundus firm EXT nontender
[2024-04-23] MEDS: MULTIVIT/MIN/PREN/FOL AC/IRON TABLET 1 TAB PO (09:26)
--- NOTE | 2024-04-23 10:30 | PC.NURSE ---
Introductions were made, then consulted with patient to assess needs related to . Mother led the conversation with her?plans to feed?her infant and the?experience so far. She feels like latch could be a little deeper but overall things are going well. We were going to attempt to feed baby but it's only been 2 hours since the last feeding and he is deeply sleeping. We tried a little to wake him with no success. Advised mom to wait another 30-60 minutes and try again. number on board and patient will call out for assistance. Parents voiced understanding of information, demonstrated learning and will call if there is a request for assistance. Reported to the Primary RN.
--- NOTE | 2024-04-23 13:40 | PC.NURSE ---
Introductions were made, communication board updated. Mother expresses that has been sleepy since having his circumcision this morning. Explained that this was to be expected and it is normal for to be sleepy post-circ. Expressed the importance of waking to feed by undressing, diaper change and skin to skin contact. Mother states understanding. Assisted with waking baby and latching . successfully latched to the right breast in football position. Explained to mother that infants IV may interfere with certain positions for and showed her positions that would be more comfortable until the IV comes out. Mother instructed to call for assistance with next feed if needed.
--- NOTE | 2024-04-23 16:40 | PC.NURSE ---
This RN called to bedside to assist with feeding. Mother handles well and can latch successfully. Infant remains sleepy but was able to latch to the right breast in cross cradle position.
--- NOTE | 2024-04-24 08:00 | PC.NURSE ---
This RN called to bedside to assist with latching . Infant appears to be flustered and is intermittently screaming at the breast. Once infant was calm, infant was placed on the left breast in football position. will take 5-6 sucks and begin to get upset and become unlatched. repositioned and placed back onto the left breast and remained at the breast and successfully nursing. Hand expression was attempted with no colostrum output. Mother refuses supplementation at this time.
--- NOTE | 2024-04-24 09:00 | PC.NURSE ---
Dr. Lesli MD ([facility]) given report on infants feedings and attempts at feeding.
--- NOTE | 2024-04-24 10:45 | PC.NURSE ---
Infant transferred to [facility]. Educated mother on pumping every 2-3 hours while is away.
== END 2024-04-23 18:27 | disposition home or self-care (01) | DRG 807 ==
LOC: ANHLDR 20:24 → ANHOB2 23:24
PROVIDERS: Admitting Provider Obstetrics & Gynecology; PCP Family Medicine; Visit Provider Obstetrics & Gynecology
DX: O70.1 Second degree perineal laceration during delivery (principal); Z37.0 Single live birth; Z3A.40 40 weeks gestation of pregnancy
CPT/HCPCS: 36415; 85014; 85018; 85025; 85461; 86592; 86703; 86850; 86880; 86900; 86901; 86902; 90384; A9270; G0432; J2590; J2790; J2795; J7120